=== PATIENT | female | born 1980 | race Caucasian/White ===

== ENCOUNTER 2016-11-11 12:24 | Emergency (ER) | payer BC, OTHER ==
[~2016-11-11] VITALS: Ht 165.1 cm; Wt 69.0 kg
[~2016-11-11 12:24] MED LIST: PRENTAB26 PO
[2016-11-11 12:27] VITALS: TEMP 37.3; Ht 165.1 cm; Wt 69.0 kg
[2016-11-11] MEDS ORDERED: ONDANSETRON INJ 2 MG/ML 2 ML VIAL IV STA (12:59)
[2016-11-11] MEDS ORDERED: SODIUM CHLORIDE 0.9% 1000ML 1,000 ML IV STA (12:59)
[2016-11-11 13:25] LABS: BASO % 0.1 %; BASO ABS # 0.01 K/uL (0-0.2); COMPLETE YES; EOS % 0.6 %; HEMATOCRIT 35.7 % (37-47); IG% 0.1 %; LYMPH ABS # 1.51 K/uL (1.2-3.4); MEAN CELL VOLUME 82.4 fL (80-100); MEAN CORPUSCULAR HEMOGLOBIN 28.4 pg (25-34); MEAN CORPUSCULAR HGB CONC 34.5 g/dl (32-36); MEAN PLATELET VOLUME 11.2 fL (7.4-10.4); MONO % 5.9 %; NEUT % 74.3 %; PLATELET COUNT 187 K/uL (130-400); RED BLOOD COUNT 4.33 M/uL (4.2-5.4); WHITE BLOOD COUNT 7.95 K/uL (4.8-10.8)
[2016-11-11 13:28] LABS: URINE APPEARANCE CLEAR (CLEAR); URINE BILIRUBIN NEG (NEG); URINE COLOR YELLOW; URINE NITRITE NEG (NEG); URINE SPECIFIC GRAVITY 1.025 (1.000-1.030); UROBILINOGEN NEG (NEG)
[2016-11-11 13:36] LABS: PROTHROMBIN TIME (PATIENT) 10.3 SECONDS (9.0-12.0)
[2016-11-11 13:40] LABS: CALCIUM 9.1 mg/dl (8.5-10.1); CREATININE 0.72 mg/dl (0.60-1.20); POTASSIUM 3.5 mmol/L (3.5-5.1)
[2016-11-11 13:45] LABS: MANUAL MICROSCOPIC REQUIRED? NO; REVIEW REQ? NO
[2016-11-11] MEDS ORDERED: MoRPHine SULFATE 4 MG/ML 1 ML CARP\\VIAL IV STA (14:14)
--- NOTE | 2016-11-11 15:19 | DIAGNOSTIC IMAGING REPORT ---
FIRST TRIMESTER OBSTETRICAL ULTRASOUND CLINICAL HISTORY: Vaginal bleeding. Cramping. Positive test. COMPARISON STUDY: No previous studies for comparison. FINDINGS: The patient refused endovaginal scanning. A single alive intrauterine gestation was visualized. The crown-rump length measures 7 mm corresponding to an estimated postmenstrual age of 6 weeks and 4 days. The embryonic heart rate is 129. A normal-appearing yolk sac was visualized. There is a 2 cm right ovarian cyst likely representing a corpus luteum. IMPRESSION: Single live intrauterine gestation. The estimated postmenstrual age is 6 weeks and 4 days. Electronically signed by: Fermin Maza M.D. 11/11/2016 3:18 PM Dictated Date/Time: 11/11/2016 3:15 PM
[2016-11-11 15:50] VITALS: BP 116/76; PULSE 89; O2SAT 100
--- NOTE | 2016-11-13 16:49 | EMERGENCY ROOM VISIT NOTE ---
ED Visit Note First contact with patient: 12:33 Chief Complaint: Vaginal bleeding and lower abdominal cramping. History of Present Illness: Ms. Lynn is a 36-year-old white female who ambulates into the ED complaining of vaginal bleeding and lower abdominal cramping. Historically patient reports she has 3, para 3. She was recently diagnosed prior self with a home and feels she is approximately 6 weeks. 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 She reports she is A positive. Patient reports 2 days ago she noted light spotting but was not experiencing any pain. Earlier today she reports she was having some mild heavily or bleeding that was found in the toilet after going to the bathroom and she is having cramping. This started approximately 2 hours ago. Currently she rates her discomfort 2/10. The pain is nonradiating. She has not identified any aggravating or alleviating factors related to the pain. She has not taken any medications for pain prior to arrival at the hospital. Associated with her discomfort she reports she admits mild increase in nausea and denies fevers, chills, sweats, upper abdominal pain, vomiting, diarrhea, constipation, rectal bleeding, black/tarry stools, vaginal discharge, painful intercourse, urinary symptoms, hematuria, back/flank pain. Review of Systems: As noted above in history of present illness. All body systems were reviewed and found to be negative as noted above. Past Medical History: Asthma, bronchitis, hyperemesis gravidarum, unspecified stomach disorder. Current Medications: Patient denies. Allergies to Medications: Patient denies. Social History: Patient is not employed; she feels safe in her home; she denies tobacco and alcohol Physical Examination: Vital Signs: Date Time Temp Pulse Resp B/P Pulse Ox O2 Delivery O2 Flow Rate FiO2 11/11/16 15:50 89 17 116/76 100 11/11/16 14:23 73 17 125/76 100 Room Air 11/11/16 12:27 37.3 82 16 148/98 99 GENERAL: 36-year-old female in mild distress due to pain, nontoxic-appearing, afebrile and hemodynamically stable. NEUROLOGICAL: Awake, alert and oriented to person, place and time. Answering questions appropriately and following commands. Normal gait. Good hand eye coordination. No focal motor sensory deficits. SKIN: Warm, dry and pink. No soft tissue eruptions or trauma noted. HEENT: Atraumatic and normocephalic. PERRLA. Sclera white and conjunctiva pink. No drainage from naris. Oral cavity moist and pink. Pharynx is nonerythematous or edematous. Speech normal. No lymphadenopathy. Trachea midline. No jugular venous distention. BACK: No tenderness over the bony spine. No CVA tenderness. THORAX: Lungs sounds are clear to auscultation and equal bilaterally with symmetrical chest wall. No wheezing, rales or rhonchi. No crepitus, tenderness , subcutaneous air or deformities noted. HEART: Regular rate and rhythm. No gallops, rubs or murmurs are appreciated. ABDOMEN: Flat, soft and nontender. Positive bowel sounds in all quadrants. No guarding, rigidity or organomegaly. PELVIC: Normal-appearing external genitalia with no evidence of external bleeding, erythema or edema. No inguinal lymphadenopathy. Speculum exam shows a small amount of blood-tinged fluid in the posterior vaginal vault. No bleeding from the os. The os was closed. ED Course: Patient is assessed as noted above. Laboratory Testing: Test 11/11/16 13:00 11/11/16 13:10 Range/Units Urine Color YELLOW Urine Appearance CLEAR CLEAR Urine pH 6.0 4.5-7.5 Urine Specific [place] 1.025 1.000-1.030 Urine Protein NEG NEG Urine Glucose (UA) NEG NEG Urine Ketones 1+ NEG Urine Occult Blood NEG NEG Urine Nitrite NEG NEG Urine Bilirubin NEG NEG Urine Urobilinogen NEG NEG Urine Leukocyte Esterase NEG NEG White Blood Count 7.95 4.8-10.8 K/uL Red Blood Count 4.33 4.2-5.4 M/uL Hemoglobin 12.3 12.0-16.0 g/dL Hematocrit 35.7 37-47 % Mean Corpuscular Volume 82.4 80-100 fL Mean Corpuscular Hemoglobin 28.4 25-34 pg Mean Corpuscular Hemoglobin Concent 34.5 32-36 g/dl Platelet Count 187 130-400 K/uL Mean Platelet Volume 11.2 7.4-10.4 fL Neutrophils (%) (Auto) 74.3 % Lymphocytes (%) (Auto) 19.0 % Monocytes (%) (Auto) 5.9 % Eosinophils (%) (Auto) 0.6 % Basophils (%) (Auto) 0.1 % Neutrophils # (Auto) 5.90 1.4-6.5 K/uL Lymphocytes # (Auto) 1.51 1.2-3.4 K/uL Monocytes # (Auto) 0.47 0.11-0.59 K/uL Eosinophils # (Auto) 0.05 0-0.5 K/uL Basophils # (Auto) 0.01 0-0.2 K/uL RDW Standard Deviation 41.6 36.4-46.3 fL RDW Coefficient of Variation 13.6 11.5-14.5 % Immature Granulocyte % (Auto) 0.1 % Immature Granulocyte # (Auto) 0.01 0.00-0.02 K/uL Prothrombin Time 10.3 9.0-12.0 SECONDS Prothromb Time International Ratio 1.0 0.9-1.1 Activated Partial Thromboplast Time 26.4 21.0-31.0 SECONDS Partial Thromboplastin Ratio 1.0 Sodium Level 139 136-145 mmol/L Potassium Level 3.5 3.5-5.1 mmol/L Chloride Level 102 98-107 mmol/L Carbon Dioxide Level 29 21-32 mmol/L Anion Gap 8.0 3-11 mmol/L Blood Urea Nitrogen 10 7-18 mg/dl Creatinine 0.72 0.60-1.20 mg/dl Est Creatinine Clear Calc Drug Dose 104.4 ml/min Estimated GFR () 124.0 Estimated GFR (Non- 107.0 BUN/Creatinine Ratio 14.0 10-20 Random Glucose 92 70-99 mg/dl Calcium Level 9.1 8.5-10.1 mg/dl Total Bilirubin 0.3 0.2-1 mg/dl Aspartate Amino Transf (AST/SGOT) 8 15-37 U/L Alanine Aminotransferase (ALT/SGPT) 20 12-78 U/L Alkaline Phosphatase 50 45-117 U/L Total Protein 7.5 6.4-8.2 gm/dl Albumin 3.8 3.4-5.0 gm/dl Globulin 3.7 2.5-4.0 gm/dl Albumin/Globulin Ratio 1.0 0.9-2 Human Chorionic Gonadotropin, Quant 54694 mIU/mL First Trimester Ultrasound: Was reviewed by myself and the radiologist showing a single live intrauterine measuring 6 weeks and 4 days, embryonic rate 129, normal-appearing yolk sac. 2 cm right ovarian cyst. Patient was hydrated with normal saline and received 4 mg of Zofran IV. Patient was reassessed multiple times during her stay in the emergency department. After patient's ultrasound she recovered complaint of increasing pain and was given 4 mg of morphine IV. Patient's case was was reviewed with Dr. Lin; we agreed on diagnostic approach, treatment, disposition and plan. Patient was educated about melodyight's findings and instructed on her treatment plan; she verbalizes understanding and agreement with this plan. Clinical Impression: Vaginal bleeding. Pelvic pain. Decision-Making: Initially my differential diagnosis I considered ectopic , ovarian cyst, spontaneous , PID and other causes. Disposition: Patient discharged home in stable condition accompanied by family member; prior to departure she was reassessed and subjectively reported she was feeling better and rated her discomfort 1/10 and reported resolution of nausea. Plan: Patient was encouraged use 650 mg of acetaminophen every 6 hours as needed for pain. Vaginal rest was explained to the patient. 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 Patient was encouraged return the ED for worsening bleeding, worsening pain or any new/concerning symptoms.
== END 2016-11-11 15:50 | disposition home or self-care (01) ==
LOC: C.EDB 12:26 → C.EDC 15:50
DX: O20.9 Hemorrhage in early pregnancy, unspecified (principal); R10.2 Pelvic and perineal pain; Z3A.01 Less than 8 weeks gestation of pregnancy

== ENCOUNTER → 2016-11-20 | Outpatient (CLI) | payer BC ==
[2016-11-20 14:35] LABS: URINE APPEARANCE CLEAR (CLEAR); URINE BILIRUBIN NEG (NEG); URINE COLOR YELLOW; URINE NITRITE NEG (NEG); URINE PH 5.5 (4.5-7.5); URINE SPECIFIC GRAVITY 1.028 (1.000-1.030); UROBILINOGEN NEG (NEG)
[2016-11-20 14:38] LABS: MANUAL MICROSCOPIC REQUIRED? NO; REVIEW REQ? NO
== END | disposition home or self-care (01) ==
LOC: C.LABSPEC 13:25
PROVIDERS: ATTEND Obstetrics & Gynecology
DX: O09.529 Supervision of elderly multigravida, unspecified trimester (principal)

== ENCOUNTER → 2016-11-27 | Outpatient (CLI) | payer BC ==
[2016-11-27 11:46] LABS: BASO % 0.3 %; BASO ABS # 0.02 K/uL (0-0.2); COMPLETE YES; EOS % 0.8 %; HEMATOCRIT 35.1 % (37-47); IG% 0.4 %; LYMPH % 19.9 %; MEAN CELL VOLUME 80.7 fL (80-100); MEAN CORPUSCULAR HEMOGLOBIN 27.1 pg (25-34); MEAN CORPUSCULAR HGB CONC 33.6 g/dl (32-36); MEAN PLATELET VOLUME 10.7 fL (7.4-10.4); MONO % 6.9 %; NEUT % 71.7 %; PLATELET COUNT 241 K/uL (130-400); RED BLOOD COUNT 4.35 M/uL (4.2-5.4); WHITE BLOOD COUNT 7.52 K/uL (4.8-10.8)
[2016-11-30 02:32] LABS: CHLAMYDIA TRACH RNA*** NOT DETECTED (NOT DETECTED); GC (NEIS GONORRHOEAE)RNA** NOT DETECTED (NOT DETECTED)
== END | disposition home or self-care (01) ==
LOC: C.LAB1850 10:50
PROVIDERS: ATTEND Obstetrics & Gynecology
DX: Z34.90 Encounter for supervision of normal pregnancy, unspecified, unspecified trimester (principal)

== ENCOUNTER → 2017-01-16 | Outpatient (CLI) | payer BC ==
[~2017-01-16] MED LIST changes: +FERR1TAB23
[2017-01-16 12:20] LABS: GTGD 50 Grams
== END | disposition home or self-care (01) ==
LOC: C.LAB1850 09:09
PROVIDERS: ATTEND Obstetrics & Gynecology
DX: O09.529 Supervision of elderly multigravida, unspecified trimester (principal)

== ENCOUNTER → 2017-04-10 | Outpatient (CLI) | payer BC, OTHER ==
[2017-04-10 12:26] LABS: HEMATOCRIT 30.8 % (37-47)
[2017-04-10 12:50] LABS: GTGD 50 Grams
[2017-04-10 15:11] LABS: URINE APPEARANCE CLEAR (CLEAR); URINE BILIRUBIN NEG (NEG); URINE COLOR YELLOW; URINE EPITHELIAL CELL AUTO 20-30 /lpf (0-5); URINE NITRITE NEG (NEG); URINE SPECIFIC GRAVITY 1.028 (1.000-1.030); UROBILINOGEN NEG (NEG)
[2017-04-10 15:15] LABS: MANUAL MICROSCOPIC REQUIRED? NO; REVIEW REQ? NO
== END | disposition home or self-care (01) ==
LOC: C.LAB1850 09:52
PROVIDERS: ATTEND Obstetrics & Gynecology
DX: O09.522 Supervision of elderly multigravida, second trimester (principal); Z3A.00 Weeks of gestation of pregnancy not specified

== ENCOUNTER → 2017-06-12 | Outpatient (CLI) | payer BC, OTHER | END | disposition home or self-care (01) | LOC: C.LABSPEC 10:57 | PROVIDERS: ATTEND Obstetrics & Gynecology | DX: O09.523 Supervision of elderly multigravida, third trimester (principal); Z3A.00 Weeks of gestation of pregnancy not specified ==

== ENCOUNTER 2017-06-24 02:43 | Inpatient (IN) | payer BC, OTHER ==
[~2017-06-24] VITALS: Ht 165.1 cm; Wt 82.7 kg
[2017-06-24] MEDS ORDERED: LACTATED RINGER'S 1000ML 1,000 ML IV SCH (03:10)
[2017-06-24] MEDS ORDERED: PRENTAB26 PO (03:25)
[2017-06-24] MEDS ORDERED: FERR1TAB23 (03:25)
[2017-06-24 03:27] VITALS: Ht 165.1 cm; Wt 82.7 kg
[2017-06-24] MEDS ORDERED: FENTANYL CITRATE INJ 50 MCG/1 ML 2 ML VIAL ONE (03:27)
[2017-06-24] MEDS ORDERED: EpHEDrine SULFATE INJ 50 MG/ML AMP ONE (03:27)
[2017-06-24] MEDS ORDERED: FENTANYL 2MCG/ML ROPIV 1.25MG/ML 100ML BAG EPI ONE (03:27)
[2017-06-24] MEDS ORDERED: BUPIVACAINE 0.25% 30 ML VIAL ONE (03:27)
[2017-06-24] MEDS ORDERED: NALOXONE HCL INJ 1 MG in SODIUM CHLORIDE 0.9% 1000ML 1,000 ML IV PRN (03:50)
[2017-06-24] MEDS ORDERED: LACTATED RINGER'S 1000ML 500 ML IV PRN (03:50)
[2017-06-24 03:56] LABS: HEMATOCRIT 33.8 % (37-47); MEAN CELL VOLUME 80.1 fL (80-100); MEAN CORPUSCULAR HEMOGLOBIN 25.4 pg (25-34); MEAN CORPUSCULAR HGB CONC 31.7 g/dl (32-36); MEAN PLATELET VOLUME 10.3 fL (7.4-10.4); PLATELET COUNT 218 K/uL (130-400); RED BLOOD COUNT 4.22 M/uL (4.2-5.4); WHITE BLOOD COUNT 8.53 K/uL (4.8-10.8)
[2017-06-24] MEDS ORDERED: EpHEDrine SULFATE INJ 50 MG/ML AMP IV PRN (04:00)
[2017-06-24] MEDS ORDERED: DiphenhydrAMINE HCL 50 MG/ML VIAL IV PRN (04:00)
[2017-06-24] MEDS ORDERED: ONDANSETRON INJ 2 MG/ML 2 ML VIAL IV PRN (04:00)
[2017-06-24] MEDS ORDERED: NALOXONE HCL INJ 0.4 MG/1 ML VIAL/CARP IV PRN (04:00)
[2017-06-24] MEDS ORDERED: FENTANYL 2MCG/ML ROPIV 1.25MG/ML 100ML BAG EPI PRN (04:00)
[2017-06-24] MEDS ORDERED: NALBUPHINE HCL INJ 10 MG/ML AMP IV PRN (04:00)
[2017-06-24] MEDS ORDERED: OXYTOCIN 30 UNITS/500ML NSS IV ONE (04:47)
[2017-06-24] MEDS ORDERED: BENZOCAINE 20% AER SPR 82.5 GM CAN EXT PRN (05:30)
[2017-06-24] MEDS ORDERED: OXYTOCIN 30 UNITS/500ML NSS IV PRN (05:30)
[2017-06-24] MEDS ORDERED: LANOLIN OINT EXT PRN ×2 (05:30)
[2017-06-24] MEDS ORDERED: SUPERCREAM 0.870 % 15GM JAR EXT PRN (05:30)
[2017-06-24] MEDS ORDERED: HYDROCORTISONE ACETATE 25 MG SUPP PR PRN (05:30)
[2017-06-24] MEDS ORDERED: OXYCODONE/ACETAMINOPHEN 5-325 TAB PO PRN (05:30)
[2017-06-24] MEDS: CEFAZOLIN IV 1,000 MG in DEXTROSE 5% 50ML 50 ML IV SCH ×3 (05:52→22:12)
--- NOTE | 2017-06-24 07:40 | Anesthesia Procedure Note ---
Anesthesia Epidural Removal Nt Date & Time Jun 24, 2017 at 07:40 Vital Signs Pain Intensity: 0.0 Notes Mental Status: alert / awake / arousable, participated in evaluation Nausea / Vomiting: adequately controlled Pain: adequately controlled Airway Patency, RR, SpO2: stable & adequate BP & HR: stable & adequate Hydration State: stable & adequate Neuraxial Anesthesia: was administered Anesthetic Complications: no major complications apparent, pt satisfied with anesthetic care Epidural: removed without complications, with tip intact
[2017-06-24] MEDS: DOCUSATE SODIUM 100 MG CAP PO SCH ×2 (07:54→20:15)
[2017-06-24] MEDS: IBUPROFEN 600 MG TAB PO PRN ×3 (07:56→20:15)
[2017-06-24 08:15] VITALS: BP 121/77; PULSE 83; TEMP 36.8
--- NOTE | 2017-06-24 09:12 | DELIVERY SUMMARY ---
DATE OF OPERATION: 06/24/2017 PREDELIVERY DIAGNOSES: 1. 37-year-old G4, P2-0-1-2 at 38 weeks 4 days. 2. Spontaneous labor. 3. Asthma. 4. Advanced maternal age. POSTDELIVERY DIAGNOSES: Same. PROCEDURES: Spontaneous vaginal delivery and repair of second degree perineal laceration and manual extraction of placenta. ESTIMATED BLOOD LOSS: 300 mL. FINDINGS: Viable male with Apgars of 8 and 9. Weight pending. Please see nursery records. DESCRIPTION OF DELIVERY: The patient presented in spontaneous labor, received an epidural for anesthesia and then progressed to complete. She began to push. She spontaneously vaginally delivered a viable male from the cephalic presentation with the head in left occiput anterior position. The head delivered. No nuchal cord was noted. The anterior shoulder followed by the posterior shoulder were delivered followed by the body. Spontaneous cry was heard. The baby was placed in mother's abdomen. Delayed cord clamping was employed, but after 1 minute, the cord was doubly clamped and cut. The cord blood was obtained. The placenta was then attempted to be delivered by active management of the third stage; however, the umbilical cord avulsed during attempts of delivery and therefore, the placenta was manually extracted. The uterus and vagina were swept of all clots and debris. The cervix, vagina and perineum were inspected and a second degree perineal laceration was noted and repaired in standard fashion with 3-0 Vicryl in a running stitch. Prior to repair of laceration, 10 mL of lidocaine was injected locally for anesthetic. Pitocin was given. Excellent hemostasis was observed. The mother and baby tolerated the delivery well and are recovering in stable condition in the room. Sponge, instrument and needle counts were at the conclusion of the delivery. I attest to the content of the Intraoperative Record and any orders documented therein. Any exceptions are noted below. MTDD
[2017-06-24 12:15] VITALS: BP 117/74; PULSE 76; TEMP 36.9
[2017-06-24 15:45] VITALS: BP 121/75; PULSE 86; TEMP 37.2
[2017-06-24 19:30] VITALS: BP 125/78; PULSE 88; TEMP 36.8; O2SAT 98
[2017-06-24 23:25] VITALS: BP 124/84; PULSE 87; TEMP 36.8
[2017-06-25 04:25] VITALS: BP 125/88; PULSE 99; TEMP 37
--- NOTE | 2017-06-25 07:31 | Progress Note ---
Subjective Jun 25, 2017. Subjective conversation w/ patient, physical exam, chart review, lab review Ambulation: ambulating normally Voiding: no voiding problems Passing Gas: Yes Diet Tolerance: Regular Diet Feeding Type: Bottle Feeding (no success with breast feeding yet) Pain: Minimal cramping Comment: Found pt resting this AM, says she feels "emotional" but not depressed, and has no other acute c/o. Review of Systems Constitutional: No fever, No chills Respiratory: No cough, No shortness of breath Cardiac: + edema, No chest pain Abdomen: No nausea, No vomiting, No diarrhea Female : No dysuria Objective Vital Signs Date Time Temp Pulse Resp B/P (MAP) Pulse Ox O2 Delivery O2 Flow Rate FiO2 06/25/17 04:25 37.0 99 18 125/88 (100) Room Air 06/24/17 23:25 36.8 87 18 124/84 (97) Room Air 06/24/17 23:25 Room Air 06/24/17 19:30 36.8 88 18 125/78 (94) 98 Room Air 06/24/17 15:45 37.2 86 16 121/75 (90) Room Air 06/24/17 15:45 Room Air 06/24/17 12:15 36.9 76 16 117/74 (88) Room Air 06/24/17 08:15 36.8 83 16 121/77 (92) Room Air 06/24/17 08:15 Room Air Physical Exam General Appearance: WELL-APPEARING, WD/WN, NO APPARENT DISTRESS Respiratory/Chest: lungs clear, normal breath sounds, no respiratory distress Cardiovascular: regular rate, rhythm, no murmur Abdomen: normal bowel sounds, non tender, soft Fundus: Firm, Non-Tender, Relation to Umbilicus (approx one down) Extremities: normal range of motion, no calf tenderness, + pedal edema (trace bilaterally) Laboratory Results Last 24 Hours Test 06/25/17 07:07 Hemoglobin 10.7 g/dL Hematocrit 34.0 % Assessment and Plan Problem List Medical Problems: (1) Vaginal bleeding Status: Acute Post- Day#: 1 Continue Routine Care: 37F s/p , now PPD #1. - Blood type A positive. GBS negative. Rubella immune. - Vital signs reviewed and stable. - Pain controlled with motrin. - No leg swelling or tenderness on calf palpation. Encourage ambulation. - Encourage to try breast feeding again. - Hemoglobin pre-delivery 10.7, post-delivery also 10.7. Bleeding has improved. Continue to monitor clinically. - Continue routine post-vaginal delivery care. Watch for "blues". - Pt agreed with above plan, all current questions answered. Edwardo Pearson MD, PGY1 Wireline Supervisor Physician Supervision Note: I was present with Dr. Pearson during the history and exam. I discussed the case with the resident and agree with the findings and plan as documented in the note. Any exceptions or clarifications are listed here: PPD#1 doing well. Desires discharge home. Discharge instructions discussed. RTO 6wpp. Documented By: Sherlyn Person Resident Tracking Resident Involvement: Resident Care Provided Care Provided: OB Delivery (OB rounds)
[2017-06-25 07:40] VITALS: BP 123/80; PULSE 90; TEMP 37.3; O2SAT 99
--- NOTE | 2017-06-25 08:03 | Discharge Instructions ---
Discharge Instructions Date of Service Jun 25, 2017. Admission Reason for Admission: Spontaneous Onset Of Labor Discharge Discharge Diagnosis / Problem: Recovery from vaginal delivery Discharge Goals Goal(s): Routine recovery after delivery Medications Continue Dispensed Medications: supercream, dermaplast, tucks, lansinoh Activity Recommendations Activity Limitations: per Instructions/Follow-up section . Instructions / Follow-Up Instructions / Follow-Up ACTIVITY RECOMMENDATIONS: * Gradual return to full activity over the next 2-3 weeks. * No lifting - nothing heavier than baby over the next 2-3 weeks. * Do not engage in vigorous exercise, sexual activity or sports until cleared by your physician. * Do not drive or operate any motorized equipment until cleared by your physician. * You may shower/bathe daily. MEDICATIONS: For discomfort or pain, you may use Acetaminophen (Tylenol), Ibuprofen (Advil), or Naproxen (Aleve) following the package directions. For constipation you may use Colace following the package directions. BREAST CARE: If you are not breast feeding: * Wear a supportive bra 24 hours a day for one to two weeks. * Avoid stimulating your breasts and nipples as much as possible during the first few weeks after delivery. * When taking a shower, have the warm water hit your back, not breasts. * When your breasts feel full, apply ice packs. Usually three to four times a day helps ease the discomfort. * Take a mild pain medication (Tylenol / Motrin) when you are uncomfortable. If breast feeding: * Use breast milk to lubricate nipples. Lansinoh cream may be used for sore nipples. You do not need to remove cream prior to breast feeding. If using a different brand of cream, check the label for directions regarding removal of cream prior to nursing. * Wear a supportive bra. * If having problems with breasts or breast feeding, call a cassandra consultant or your health care provider. EPISIOTOMY CARE: After delivery, if you have an episiotomy (stitches), the following steps will ease discomfort and aid healing. * For the first 24 hours after delivery, place ice packs next to your episiotomy to help reduce swelling. * After the first 24 hour-period, sitz baths, either portable or in the tub, are suggested. A shower with a shower arm sprayed over the episiotomy may be comforting. * Cara care should be done after each voiding and bowel movement. Squirt warm water from a plastic bottle over the perineum (region of the body between the anus and urinary opening) and pat dry. * Use Dermoplast to ease discomfort. Shake container. [place] directly over the episiotomy. Place a Tucks on a clean sanitary pad next to your episiotomy. SPECIAL CARE INSTRUCTIONS: When you are discharged from the hospital, it is important for you to follow the instructions listed below: * During the first week at home, you should be able to care for yourself and your baby. In addition, the usual light household activities are encouraged. * Limit your activities to the way you feel. Do not try to clean the house or move furniture. Be sensible. * If you actively engage in sports and have done so up until the time of your delivery, you may resume these activities as soon as you feel able. This may take up to one month or even longer. Use good judgment. * Continue to take your vitamins for at least six weeks after the of your baby. * Your diet need not be limited unless you were on a special diet before your delivery. Breast-feeding mothers need around 2500 calories per day and at least 64-80 ounces of fluid per day (8 to 10 glasses). * You should eat foods from the four major food groups. Crash diets or fad diets are to be avoided. Eating lean meats, fresh fruits and vegetables, low-fat dairy products, high fiber foods and a regular exercise program, will help you get back to your pre- weight without putting your health at risk. * Constipation is sometimes a problem after delivery. Take a mild laxative as needed. If breast feeding, Milk of Magnesia is acceptable to use. You may use a suppository or Fleets enema if no episiotomy. * A daily shower or tub bath is suggested. Be sure to thoroughly and gently dry the perineum. * A bloody vaginal discharge will usually continue until around four weeks post . A small amount of bleeding may continue for as long as six weeks. Vaginal discharge changes from the bright red bleeding after delivery to pink then brownish and finally yellowish-pink before becoming white and disappearing. * Bleeding may increase with activity. Your first period may come in 4-8 weeks. If you are breast feeding, your period may be delayed even longer. * [place] (sex) can begin whenever both you and your partner feel comfortable and do not have any form of genital infection. It is recommended that you wait at least six weeks for internal and external healing to occur. If you have questions, please talk to your health care practitioner. A condom should be used to prevent infection and . * Foreplay, gentle intercourse and lubrication is very important the first several times to prevent pain. A water-based lubricant such as K-Y jelly or Astroglide may be used. * If you have RH negative blood and your baby is RH positive, you will receive RHOGAM by injection prior to discharge. The nurse will give you a card to keep with you that has the date and place that you received RHOGAM after delivery. * During your care, you had a Rubella screen done to check for the presence of rubella antibodies in your blood. If your test was negative, you will receive a Rubella vaccine prior to discharge. This vaccine may cause a fever, soreness at the injection site and flu-like symptoms. If these symptoms persist, notify your health care practitioner. is not advised for one month after a Rubella vaccine. * Verbalizes understanding of car seat law as reviewed with patient nursing. * Car Seat hand-out given and reviewed with patient by nursing. * Shaken baby information reviewed with patient by nursing. Call you doctor if: * Heavy bleeding (saturating several pads an hour) or passing clots the size of your fist. * A fever >101 degrees F (38.3 degrees C) on two occasions four hours apart and /or chills. * Unusual pain in the pelvic or vaginal areas. * "Baby Blues" lasting longer than two weeks. If you have any questions or concerns, call your health care practitioner at . FOLLOW UP VISIT: * Please call the office at to schedule a 6 week examination. It is important you keep this appointment. It is important for you to make arrangements for either yearly or twice yearly check-ups thereafter. Current Hospital Diet Patient's current hospital diet: Regular OB Diet Discharge Diet Recommended Diet: Regular OB Diet Pending Studies Studies pending at discharge: no Medical Emergencies . Who to Call and When: Medical Emergencies: If at any time you feel your situation is an emergency, please call 911 immediately. . Non-Emergent Contact Non-Emergency issues call your: Leadership Development Manager . . "Provider Documentation" section prepared by Edwardo Pearson. . VTE Core Measure Inpt VTE Proph given/why not?: Treatment not indicated
[2017-06-25] MEDS: IBUPROFEN 600 MG TAB PO PRN (08:45)
[2017-06-25] MEDS: DOCUSATE SODIUM 100 MG CAP PO SCH (08:45)
[2017-06-25 15:20] VITALS: BP 115/77; PULSE 98; TEMP 36.9; O2SAT 98
[2017-06-25 16:55] VITALS: BP_DIAS 77; PULSE 98; TEMP 36.9
[2017-06-25] MEDS ORDERED: BISACODYL 5 MG TABEC PO SCH (20:00)
== END 2017-06-25 16:55 | disposition home or self-care (01) | DRG 775 ==
LOC: C.OPB 02:43 → C.LD 02:44 → C.OPB 03:14 → C.OBG 08:32
PROVIDERS: ADMIT Obstetrics & Gynecology; ATTEND Obstetrics & Gynecology
PROC: 10E0XZZ Delivery of Products of Conception, External Approach (ICD-10-PCS; principal; 2017-06-24)
PROC: 0KQM0ZZ Repair Perineum Muscle, Open Approach (ICD-10-PCS; principal; 2017-06-24)
DX: O70.1 Second degree perineal laceration during delivery (principal); O09.523 Supervision of elderly multigravida, third trimester; O99.52 Diseases of the respiratory system complicating childbirth; J45.909 Unspecified asthma, uncomplicated; Z37.0 Single live birth; Z3A.38 38 weeks gestation of pregnancy

== ENCOUNTER → 2017-08-08 | Outpatient (CLI) | payer BC, OTHER ==
[~2017-08-08] MED LIST changes: -FERR1TAB23
== END | disposition home or self-care (01) ==
LOC: C.PAPS 09:15
PROVIDERS: ATTEND Obstetrics & Gynecology
DX: Z39.2 Encounter for routine postpartum follow-up (principal)